=== PATIENT | male | born 1960 | race Caucasian/White ===

== ENCOUNTER 2025-04-14 09:35 | Emergency (ER) | payer OTHER ==
[2025-04-14 10:21] LABS: #Basophils 0.12 10x3/uL (0.0-0.2); #Eosinophils 0.17 10x3/uL (0.0-0.5); #Monocytes 0.73 10x3/uL (0.0-1.1); #Neutrophils 4.44 10x3/uL (1.5-8.4); %Basophils 1.8 % (0.0-2.0); %Eosinophils 2.5 % (0.0-6.0); %Lymphocytes 18.4 % (18.0-47.0); %Monocytes 10.9 % (0.0-10.0); %Neutrophils 66.3 % (40.0-75.0); Hematocrit 35.9 % (38.8-50.0); Hemoglobin 12.6 g/dL (13.5-17.5); Mean Corpuscular Hemoglobin 33.9 pg (27.0-33.0); Mean Corpuscular Volume 96.5 fL (81.2-95.1); Platelet Count 279 10x3/uL (150-450); Red Blood Cell (RBC) Count 3.72 10x6/uL (4.32-5.72); White Blood Cell (WBC) Count 6.70 10x3/uL (3.5-10.5)
[2025-04-14 10:39] LABS: ALT (SGPT) 22 U/L (Less than 45); AST (SGOT) 56 U/L (11-34); Albumin 2.5 g/dL (3.1-4.5); Alkaline Phosphatase 126 U/L (40-110); Anion Gap 13 mmol/L (10-20); BUN (Urea Nitrogen) 7 mg/dL (8.4-25.7); Bilirubin, Total 8.5 mg/dL (0.3-1.2); Calc. Creatinine Clearance 0 mL/min (70-130); Calcium 8.3 mg/dL (7.8-10.44); Carbon Dioxide 26 mmol/L (23-31); Chloride 98 mmol/L (98-107); Globulin 4.4 g/dL (2.4-3.5); Glucose 108 mg/dL (80-115); Lipase 61 U/L (8-78); Potassium 3.5 mmol/L (3.5-5.1); Sodium 133 mmol/L (136-145)
[2025-04-14 10:44] LABS: Troponin I 0.024 ng/mL (< 0.028)
== END 2025-04-14 12:33 | disposition home or self-care (01) ==
LOC: CSHERS 09:35
DX: K70.9 Alcoholic liver disease, unspecified (principal); R18.8 Other ascites; N43.3 Hydrocele, unspecified; F17.210 Nicotine dependence, cigarettes, uncomplicated
CPT/HCPCS: 71250; 74177; 80053; 83690; 83880; 84484; 85025; 93005

== ENCOUNTER 2025-04-30 11:21 | Day surgery (SDC) | payer OTHER ==
[2025-04-30] MEDS ORDERED: Sodium Bicarbonate 2.5 MEQ/5 ML SDV ONE (12:02)
== END 2025-04-30 13:35 | disposition home or self-care (01) ==
LOC: CSHULT 11:21
PROVIDERS: ATTEND Student in an Organized Health Care Education/Training Program
PROC: 0W9G3ZZ Drainage of Peritoneal Cavity, Percutaneous Approach (ICD-10-PCS; principal; 2025-04-30)
DX: K70.31 Alcoholic cirrhosis of liver with ascites (principal); K70.11 Alcoholic hepatitis with ascites; M62.84 Sarcopenia
CPT/HCPCS: 49083; P9047